=== PATIENT | male | born 1960 | race Caucasian/White ===

== ENCOUNTER → 2019-08-16 | Outpatient (CLI) | payer OTHER ==
[2016-03-12 16:56] VITALS: BP 119/80
[~2019-08-16] MED LIST: ACET500T68 PO; GABA300C18 PO; HYDROmorphone 2 MG/ML VIAL IV PRN; IV RINGERS,LACTATED 1000ML 1,000 ML IV SCH; MOME17SP NS; MORPHINE SULFATE 2 MG/ML VIAL. IV PRN; ONDANSETRON PF 4 MG/2 ML VIAL. IV PRN; PROCHLORPERAZINE 10 MG/2 ML VIAL. IV PRN; TRAV5DRO OP; fentaNYL PF VIAL 100 MCG/2 ML VIAL IV PRN
== END | disposition home or self-care (01) ==
LOC: SURGPAT 13:18 → SURG 13:18 → EDSTATUS 08-20 09:30
PROVIDERS: ATTEND Internal Medicine Gastroenterology
DX: Z01.812 Encounter for preprocedural laboratory examination (principal); M51.17 Intervertebral disc disorders with radiculopathy, lumbosacral region
CPT/HCPCS: C9803; U0003; 36415; 87635

== ENCOUNTER → 2019-08-20 | Day surgery (SDC) | payer OTHER ==
[~2019-08-20] MED LIST changes: -HYDROmorphone 2 MG/ML VIAL IV PRN; +LIDOCAINE 2% PF 5 ML VIAL. ONE; -MORPHINE SULFATE 2 MG/ML VIAL. IV PRN; -ONDANSETRON PF 4 MG/2 ML VIAL. IV PRN; -PROCHLORPERAZINE 10 MG/2 ML VIAL. IV PRN; +PROPOFOL 10 MG/ML (20ML) VIAL. IV ONE; -fentaNYL PF VIAL 100 MCG/2 ML VIAL IV PRN
[2019-08-20 11:15] VITALS: BP 110/70
--- NOTE | 2019-08-23 13:07 | PATHOLOGY ---
[facility] Accession Number: [id number] . 01 Material submitted: . colon - RANDOM COLON BX . 01 Clinical history: . Diarrhea . 02 Diagnosis: Colonic mucosa, random colon biopsies: - No significant pathologic abnormalities. (JPM:russel; 08/23/2019) QMS 08/23/2019 0915 Local . 02 Comment: Sections of the random colon biopsy reveal multiple segments of colonic mucosa. There is no evidence of a chronic destructive colitis, lymphocytic colitis, or collagenous colitis. (JPM:russel; 08/23/2019) . 02 Electronically signed: . Godfrey Ruby MD, Pathologist NPI- [id number] . 01 Gross description: . The specimen is received in formalin, labeled "O'Kar, Mike, random colon BX" and consists of multiple fragments of pink-maier tissue measuring 1.4 x 0.9 x 0.2 cm in aggregate which are entirely submitted in A1. ([facility]; 08/20/2019) JFQ/JFQ 08/20/2019 1443 Local . 02 Pathologist provided ICD-10: R19.7 . 02 CPT . 883226 Specimen Comment: A courtesy copy of this report has been sent to [phone], [phone] Specimen Comment: [id number] Specimen Comment: Report sent to / DR STRICKLAND Performed at: 01 [facility] [address], [place] [id number] MD Ming Salas MD Phone: [phone] Performed at: 02 [facility] [address] [place], [place] [id number] MD Godfrey Ruby MD Phone: [phone]
== END | disposition home or self-care (01) ==
LOC: ENDOS 08:34
PROVIDERS: ATTEND Internal Medicine Gastroenterology
DX: R19.7 Diarrhea, unspecified (principal); K57.30 Diverticulosis of large intestine without perforation or abscess without bleeding; K63.89 Other specified diseases of intestine; K64.0 First degree hemorrhoids; I10 Essential (primary) hypertension; J45.909 Unspecified asthma, uncomplicated; F32.9 Major depressive disorder, single episode, unspecified; F41.9 Anxiety disorder, unspecified; Z87.39 Personal history of other diseases of the musculoskeletal system and connective tissue; Z86.010 Personal history of colon polyps; Z85.828 Personal history of other malignant neoplasm of skin
CPT/HCPCS: 45380; 88305; J2704; J3490

== ENCOUNTER → 2020-10-31 | Outpatient (CLI) | payer OTHER ==
[2019-08-20 11:15] VITALS: BP 110/70
[~2020-10-31] MED LIST changes: -IV RINGERS,LACTATED 1000ML 1,000 ML IV SCH; -LIDOCAINE 2% PF 5 ML VIAL. ONE; -PROPOFOL 10 MG/ML (20ML) VIAL. IV ONE
--- NOTE | 2020-11-01 12:52 | RAD ---
EXAM: XR HAND_LEFT 3 VIEWS 10/31/2020 3:18 PM CLINICAL INDICATION: Left hand pain COMPARISON: None TECHNIQUE: 3 views of the left hand FINDINGS: No acute fracture. Alignment is normal. There is moderate joint space narrowing with subch ondral sclerosis and osteophytes at the first CMC joint. The remaining joint spaces are maintained. N o soft tissue abnormality. 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 Electronically signed by: Olivia Pablo MD (11/01/2020 12:49 PM) [id number]
== END ==
LOC: RAD 14:55
PROVIDERS: ATTEND Family Medicine
DX: M18.12 Unilateral primary osteoarthritis of first carpometacarpal joint, left hand (principal); M25.742 Osteophyte, left hand; M25.842 Other specified joint disorders, left hand
CPT/HCPCS: 73130